=== PATIENT | female | born 1995 | race African-American/Black ===

== ENCOUNTER 2017-05-29 09:55 | Emergency (ER) | payer OTHER ==
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
[2017-05-29 10:54] VITALS: BP 118/76; PULSE 67; RESP 17; TEMP 98.2; O2SAT 95
== END 2017-05-29 10:53 | disposition home or self-care (01) ==
DX: S20.219A Contusion of unspecified front wall of thorax, initial encounter (principal); F17.200 Nicotine dependence, unspecified, uncomplicated; V49.49XA Driver injured in collision with other motor vehicles in traffic accident, initial encounter; Y92.410 Unspecified street and highway as the place of occurrence of the external cause; Y99.8 Other external cause status; Y93.89 Activity, other specified